=== PATIENT | male | born 1955 | race Hispanic/Latino ===

== ENCOUNTER 2017-12-20 10:45 | Emergency (ER) | payer MEDICARE ==
[2017-12-20 10:46] VITALS: BMI 31.0
[2017-12-20 10:55] VITALS: RESP 18; TEMP 98.2
[2017-12-20] MEDS ORDERED: Sodium Chloride 0.9% 1,000 ML IV STA (11:41)
--- NOTE | 2017-12-20 12:12 | RAD ---
HISTORY: abd pain COMPARISON: 06/27/2016 FINDINGS: LUNGS: No active pulmonary disease. PLEURA: No significant pleural effusion identified, no pneumothorax apparent. CARDIOVASCULAR: Normal. OSSEOUS STRUCTURES: No significant abnormalities. VISUALIZED UPPER ABDOMEN: Normal. OTHER FINDINGS: None. IMPRESSION: No active disease.
[2017-12-20 12:39] LABS: BASO # 0.04 K/mm3 (0.0-2.0); BASO % 0.5 % (0.0-3.0); EOS # 0.6 (0.0-0.7); EOS % 6.7 % (1.5-5.0); GRAN # 5.14 (1.4-6.5); GRAN % 61.1 % (50.0-68.0); HEMOGLOBIN 14.3 g/dL (14.0-18.0); LYMPH % 23.6 % (22.0-35.0); MEAN CELL VOLUME 94.2 fl (80.0-105.0); MEAN CORPUSCULAR HEMOGLOBIN 33.3 pg (25.0-35.0); MEAN CORPUSCULAR HGB CONC 35.3 g/dl (31.0-37.0); MEAN PLATELET VOLUME 9.4 fl (7.0-11.0); MONO # 0.7 (0.1-0.6); MONO % 8.1 % (1.0-6.0); RBC 4.3 10^6/uL (3.5-6.1); WHITE BLOOD COUNT 8.4 10^3/ul (4.5-11.0)
[2017-12-20 12:54] LABS: ALB/GLOB RATIO 1.2 (1.1-1.8); ALBUMIN 3.8 g/dL (3.0-4.8); ALT/SGPT 23 U/L (7-56); AST/SGOT 26 U/L (17-59); BLOOD UREA NITROGEN 16 mg/dL (7-21); CALCIUM 9.5 mg/dL (8.4-10.5); GFR AFRICAN-AMERICAN > 60; GFR NON-AFRICAN AMERICAN > 60; LIPASE 272 U/L (23-300)
[2017-12-20 13:08] LABS: URINE BILIRUBIN NEGATIVE (NEGATIVE); URINE BLOOD SMALL (NEGATIVE); URINE GLUCOSE (UA) NEGATIVE (NEGATIVE); URINE LEUKOCYTE ESTERASE MODERATE Leu/uL (NEGATIVE); URINE PROTEIN TRACE mg/dL (<30 mg/dL); URINE UROBILINOGEN 0.2 E.U./dL (<1 E.U./dL)
[2017-12-20 13:09] LABS: URINE APPEARANCE SLIGHT-CLOUDY (CLEAR); URINE COLOR YELLOW (YELLOW)
[2017-12-20 13:15] LABS: URINE BACTERIA MANY (NEG); URINE CALCIUM OXALATE CRYSTALS FEW /hpf; URINE EPITHELIAL CELLS 0 - 2 /hpf (0-5); URINE WBC 15 - 20 /hpf (0-6)
[2017-12-20 13:16] LABS: URINE AMORPHOUS SEDIMENT FEW; URINE COARSE GRANULAR CAST TRACE /hpf (0-2)
--- NOTE | 2017-12-20 13:16 | ED PDOC ---
Arrival/HPI - General Chief Complaint: Male Genitourinary Time Seen by Provider: 12/20/17 11:40 Historian: Patient - History of Present Illness Narrative History of Present Illness (Text): 12/20/17 13:13 62yr old male with colostomy, frequent urinary tract infections and large ventral hernia presents today with lower abdominal pain, dysuria and urinary frequency. Patient also states she's noticed that his urine output has slightly decreased. Although he is urinating more frequently in smaller amounts. Patient denies fevers or chills. Patient complaining of minimal lower abdominal pain. He denies nausea or vomiting. Patient states he has been having diarrhea for over a month. Patient denies dizziness but is complaining of overall fatigue. No chest pain or shortness of breath. No other complaints Time/Duration: Other (3-4 days) Symptom Onset: Gradual Symptom Course: Intermittent, Worsening Quality: Aching, Other (sharp) Severity Level: 2, 5 Past Medical History - Provider Review Nursing Documentation Reviewed: Yes - Travel History Have you recently traveled outside [place] w/in the past 3 mons?: No - Infectious Disease Hx of Infectious Diseases: None - Tetanus Immunization Tetanus Immunization: Unknown - Cardiac Hx Congestive Heart Failure: Yes Hx Hypertension: Yes Hx Pacemaker: No - Pulmonary Hx Asthma: Yes Hx Bronchitis: Yes Hx Chronic Obstructive Pulmonary Disease (COPD): Yes Hx Emphysema: Yes Hx Pneumonia: Yes - Neurological Hx Seizures: No - HEENT Hx HEENT Disorder: No - Renal Hx Renal Disorder: Yes Hx Kidney Stones: Yes - Endocrine/Metabolic Hx Endocrine Disorders: No - Hematological/Oncological Hx Anemia: No - Integumentary Hx Dermatological Disorder: Yes (EXTENSIVE SCARRING TO ABDOMINAL AREA FROM HERNIA REPAIR. COLOSTOMY TO RIGHT) Other/Comment: left inner thigh abcess i&d'd in ed packing in place draining bloody fluid, 2 brown areas of skin to left buttock - Musculoskeletal/Rheumatological Hx Falls: No - Gastrointestinal Hx Gastrointestinal Disorders: (hx buttock abcesses) Hx Colostomy: Yes Hx Diverticulitis: Yes Hx Gastroesophageal Reflux: Yes Other/Comment: large abd hernia, c dif 06/02/16 - Genitourinary/Gynecological Hx Genitourinary Disorders: (hx testicle numbness) Hx Sexually Transmitted Diseases: No Hx Urinary Tract Infection: Yes - Psychiatric Hx Anxiety: Yes Hx Depression: Yes Hx Substance Use: Yes Other/Comment: hx opiate, pain med, heroin abuse, only taking advil pm when needed now, pt stated " I stopped all my pain meds, it took me nine days" - Past Surgical History Past Surgical History: No Previous - Surgical History Other/Comment: s/p Colostomy 2000, tonsillectomy 3 yrs old,. s/p unsucessful colostomy reversal - Anesthesia Hx Anesthesia: Yes Hx Anesthesia Reactions: No Hx Malignant Hyperthermia: No - Suicidal Assessment Feels Threatened In Home Enviroment: No Family/Social History - Physician Review Nursing Documentation Reviewed: Yes Family/Social History: Unknown Family HX Smoking Status: Light Smoker < 10 Cigarettes Daily Hx Alcohol Use: No Hx Substance Use: Yes Hx Substance Use Treatment: No Allergies/Home Meds Allergies/Adverse Reactions: Allergies FISH Allergy (Intermediate, Verified 07/05/17 11:05) RASH Penicillins Allergy (Mild, Verified 07/05/17 11:05) SWELLING aspirin Allergy (Verified 07/05/17 11:05) DIZZINESS "ringing in ears" EGG Adverse Reaction (Verified 07/05/17 11:05) abdominal pain and diarrhea Home Medications: Home Meds Medication Instructions Recorded Confirmed Ibuprofen/Diphenhydramine Cit 1 tab PO HS 07/05/17 07/05/17 [Advil Pm Caplet] Review of Systems - Review of Systems Constitutional: Fatigue. absent: Fevers Respiratory: absent: SOB, Cough Cardiovascular: absent: Chest Pain, Palpitations Gastrointestinal: Abdominal Pain. absent: Constipation, Nausea, Vomiting Genitourinary Male: Dysuria, Frequency, Urinary Output Changes. absent: Hematuria Musculoskeletal: absent: Arthralgias, Back Pain, Neck Pain Skin: absent: Rash, Pruritis Neurological: absent: Headache, Dizziness Psychiatric: absent: Anxiety, Depression, Suicidal Ideation Physical Exam Vital Signs Reviewed: Yes Vital Signs Temp Pulse Resp BP Pulse Ox 12/20/17 17:00 83 18 161/88 H 95 12/20/17 11:39 79 18 187/88 H 97 12/20/17 10:52 98.2 F 98 H 18 99 Temperature: Afebrile Blood Pressure: Normal Pulse: Regular Respiratory Rate: Normal Appearance: Positive for: Well-Appearing, Non-Toxic, Comfortable Pain Distress: None Mental Status: Positive for: Alert and Oriented X 3 - Systems Exam Head: Present: Atraumatic Mouth: Present: Moist Mucous Membranes Neck: Present: Normal Range of Motion Respiratory/Chest: Present: Clear to Auscultation, Good Air Exchange. No: Respiratory Distress, Accessory Muscle Use Cardiovascular: Present: Regular Rate and Rhythm, Normal S1, S2. No: Murmurs Abdomen: Present: Tenderness (+ lower abdominal tenderness), Normal Bowel Sounds , Hernias (large tender ventral hernia). No: Distention, Peritoneal Signs, Rebound, Guarding Back: Present: Normal Inspection. No: CVA Tenderness, Midline Tenderness, Paraspinal Tenderness Upper Extremity: Present: Normal ROM Lower Extremity: Present: Normal ROM Neurological: Present: GCS=15, Speech Normal Skin: Present: Warm, Dry Psychiatric: Present: Alert, Oriented x 3 Medical Decision Making ED Course and Treatment: 12/20/17 13:19 Patient is nontoxic well appearing with stable vital signs CBC wnl CMP wnl Lipase wnl Urinalysis + blood, + nitrates, + moderate leukocytes CAT scan:FINDINGS: LOWER THORAX: Unremarkable. LIVER: Unremarkable. No gross lesion or ductal dilatation. Fatty infiltration of the liver GALLBLADDER AND BILE DUCTS: There is calcification of the wall of the gallbladder PANCREAS: Unremarkable. No gross lesion or ductal dilatation. SPLEEN: Unremarkable. ADRENALS: Bilateral 1.5 cm hypodense adrenal nodules KIDNEYS AND URETERS: Unremarkable. No hydronephrosis. No solid mass. VASCULATURE: Unremarkable. No aortic aneurysm. BOWEL: There is a large complex ventral hernia containing multiple loops of small bowel. There is no evidence of obstruction. The findings are unchanged. APPENDIX: Normal appendix. PERITONEUM: Unremarkable. No free fluid. No free air. LYMPH NODES: Unremarkable. No enlarged lymph nodes. BLADDER: Unremarkable. REPRODUCTIVE: Unremarkable. BONES: No acute fracture. OTHER FINDINGS: None. IMPRESSION: There is a large complex ventral hernia containing multiple loops of small bowel. There is no evidence of obstruction. The findings are unchanged. No acute findings Patient reassessment: pt feeling better; ambulating with steady gait. Vital signs are stable. Patient in no distress. Patient was able to urinate multiple times in the emergency room after IV fluids. Patient with a urinary tract infection. Patient refusing by mouth antibiotics in the emergency room will give a prescription for Bactrim to go home with. Patient with a prior history of multidrug resistant UTI 2 years ago. We will check urine cultures. Patient was advised that we will follow urine cultures and he will receive a call if we need to adjust antibiotics. Discussed all results with patient in depth Patient verbalizes understanding of discharge instructions and need for immediate followup. all aspects of this case were discussed the attending of record. Impression: UTI, abdominal pain Motrin every 6 hours as needed for pain bactrim 1 tablet twice daily x 10 days Follow up with primary care physician within the next 2 days Return immediately if symptoms worsen persist or if new symptoms develop: High fevers, increasing pain, vomiting, diarrhea or any other concerning symptoms develop 12/20/17 16:35 - Lab Interpretations Lab Results: 12/20/17 12:20 12/20/17 12:20 Lab Results 12/20/17 12:55: Urine Color Yellow, Urine Appearance Slight-cloudy, Urine pH 6.0 , Ur Specific Stanton 1.025, Urine Protein Trace H, Urine Glucose (UA) Negative , Urine Ketones Negative, Urine Blood Small H, Urine Nitrate Positive H, Urine Bilirubin Negative, Urine Urobilinogen 0.2, Ur Leukocyte Esterase Moderate H, Urine RBC 5 - 10, Urine WBC 15 - 20, Ur Epithelial Cells 0 - 2, Calcium Oxalate Crystal Few, Amorphous Sediment Few, Urine Bacteria Many, Coarse Granular Casts Trace H, Urine Other Uyeast 12/20/17 12:20: WBC 8.4 D, RBC 4.30, Hgb 14.3, Hct 40.5 L, MCV 94.2 D, MCH 33.3, MCHC 35.3, RDW 13.0, Plt Count 158, MPV 9.4, Gran % 61.1, Lymph % (Auto) 23.6, Becker % (Auto) 8.1 H, Eos % (Auto) 6.7 H, Baso % (Auto) 0.5, Gran # 5.14, Lymph # (Auto) 2.0, Becker # (Auto) 0.7 H, Eos # (Auto) 0.6, Baso # (Auto) 0.04 12/20/17 12:20: Sodium 140, Potassium 4.1, Chloride 105, Carbon Dioxide 26, Anion Gap 13, BUN 16, Creatinine 1.0, Est GFR ( Amer) > 60, Est GFR (Non- Af Amer) > 60, Random Glucose 121 H, Calcium 9.5, Total Bilirubin 0.4, AST 26, ALT 23, Alkaline Phosphatase 66, Total Protein 6.9, Albumin 3.8, Globulin 3.1, Albumin/Globulin Ratio 1.2, Lipase 272 - RAD Interpretation Radiology Orders: 12/20/17 11:40 CHEST PORTABLE [RAD] Stat 12/20/17 11:43 ABD & PELVIS IV CONTRAST ONLY [CT] Stat - Medication Orders Current Medication Orders: Discontinued Medications Sodium Chloride (Sodium Chloride 0.9%) 1,000 mls @ 999 mls/hr IV .Q1H1M STA Stop: 12/20/17 12:41 Last Admin: 12/20/17 13:41 Dose: 999 mls/hr eMAR Start Stop Document 12/20/17 13:41 GMD (Rec: 12/20/17 13:42 GMD [id number]) Intravenous Solution Start Date 12/20/17 Start Time 13:42 End Date 12/20/17 End time 14:43 Total Infusion Time 61 Disposition/Present on Arrival - Present on Arrival Any Indicators Present on Arrival: Yes History of DVT/PE: No History of Uncontrolled Diabetes: No Urinary Catheter: No History Surgical Site Infection Following: None - Disposition Have Diagnosis and Disposition been Completed?: Yes Diagnosis: Urinary tract infection Disposition: HOME/ ROUTINE Disposition Time: 16:40 Patient Plan: Discharge Condition: GOOD Discharge Instructions (ExitCare): Urinary Tract Infections in Adults Additional Instructions: Motrin every 6 hours as needed for pain bactrim 1 tablet twice daily x 10 days Follow up with primary care physician within the next 2 days Return immediately if symptoms worsen persist or if new symptoms develop: High fevers, increasing pain, vomiting, diarrhea or any other concerning symptoms develop Prescriptions: Sulfamethoxazole/Trimethoprim [Bactrim DS 800 mg-160 mg] 1 tab PO BID #14 tab Referrals: Raleigh Haddad MD [Staff Provider] - Follow up with primary [facility] at [facility] [place] [Outside] - Follow up with primary Forms: [employer] ([place])
[2017-12-20] MEDS ORDERED: Iohexol 350 MG/100 ML VIAL ONE (13:40)
--- NOTE | 2017-12-20 15:24 | CT ---
PROCEDURE: CT Abdomen and Pelvis with contrast HISTORY: abd pain COMPARISON: 05/01/2016 CT TECHNIQUE: Contrast dose: 100 cc of Omni 350 Radiation dose: Total exam DLP = 1013 mGy-cm. This CT exam was performed using one or more of the following dose reduction techniques: Automated exposure control, adjustment of the mA and/or kV according to patient size, and/or use of iterative reconstruction technique. FINDINGS: LOWER THORAX: Unremarkable. LIVER: Unremarkable. No gross lesion or ductal dilatation. Fatty infiltration of the liver GALLBLADDER AND BILE DUCTS: There is calcification of the wall of the gallbladder PANCREAS: Unremarkable. No gross lesion or ductal dilatation. SPLEEN: Unremarkable. ADRENALS: Bilateral 1.5 cm hypodense adrenal nodules KIDNEYS AND URETERS: Unremarkable. No hydronephrosis. No solid mass. VASCULATURE: Unremarkable. No aortic aneurysm. BOWEL: There is a large complex ventral hernia containing multiple loops of small bowel. There is no evidence of obstruction. The findings are unchanged. APPENDIX: Normal appendix. PERITONEUM: Unremarkable. No free fluid. No free air. LYMPH NODES: Unremarkable. No enlarged lymph nodes. BLADDER: Unremarkable. REPRODUCTIVE: Unremarkable. BONES: No acute fracture. OTHER FINDINGS: None. IMPRESSION: There is a large complex ventral hernia containing multiple loops of small bowel. There is no evidence of obstruction. The findings are unchanged. No acute findings
[2017-12-20 17:02] VITALS: BP 161/88; PULSE 83; O2SAT 95
== END 2017-12-20 17:07 | disposition home or self-care (01) ==
LOC: ED 10:45
DX: N39.0 Urinary tract infection, site not specified (principal); F17.210 Nicotine dependence, cigarettes, uncomplicated; I10 Essential (primary) hypertension; I50.9 Heart failure, unspecified
CPT/HCPCS: 71045; 74177; 80053; 81001; 83690; 85025; 87040; 87086; 87181; 96360; 99285; J7040; Q9967